=== PATIENT | male | born 2000 | race Two or more races ===

== ENCOUNTER 2021-11-15 11:33 | Emergency (ER) | payer OTHER, MEDICAID, BC ==
[2021-11-15] MEDS ORDERED: Mupirocin Oint 22 GM Tube TOP ONE (12:31)
[2021-11-15] MEDS ORDERED: Diphtheria,Pertussis(Acell),Tetanus Vaccine 0.5 ML Syringe IM ONE (12:31)
[2021-11-15] MEDS ORDERED: Bacitracin/Neomycin/Polymyxin B Oint 0.9 GM U/D Packet TOP ONE (12:49)
== END 2021-11-15 12:55 | disposition home or self-care (01) ==
LOC: CC.ED 11:33
DX: S60.921A Unspecified superficial injury of right hand, initial encounter (principal); Z72.0 Tobacco use; W22.09XA Striking against other stationary object, initial encounter; Z23 Encounter for immunization
CPT/HCPCS: 90471; 90715; 99282; 99283

== ENCOUNTER 2025-08-22 12:56 | Emergency (ER) | payer OTHER ==
[2025-08-22] MEDS: Ketorolac 30 MG/ML SDV IM ONE (13:35)
== END 2025-08-22 13:50 | disposition home or self-care (01) ==
LOC: CC.ED 12:56 → MERGE 12:56 → CC.ED 13:50
DX: S39.012A Strain of muscle, fascia and tendon of lower back, initial encounter (principal); F17.210 Nicotine dependence, cigarettes, uncomplicated; Z79.899 Other long term (current) drug therapy; X50.0XXA Overexertion from strenuous movement or load, initial encounter; Y93.89 Activity, other specified; Y99.0 Civilian activity done for income or pay
CPT/HCPCS: 96372; 99283; J1885